=== PATIENT | male | born 1985 | race Caucasian/White ===

== ENCOUNTER 2018-02-15 10:49 | Emergency (ER) | payer MEDICAID ==
[~2018-02-15] VITALS: Ht 180.3 cm; Wt 86.2 kg
[~2018-02-15 10:49] MED LIST: BACDS PO; CYCL-120 PO; IBUP-1984 PO
[2018-02-15 11:28] VITALS: BP 137/90
== END 2018-02-15 13:31 | disposition left against medical advice (07) ==
LOC: ER 10:49
DX: K08.89 Other specified disorders of teeth and supporting structures (principal); Z53.21 Procedure and treatment not carried out due to patient leaving prior to being seen by health care provider

== ENCOUNTER 2024-05-01 12:09 | Emergency (ER) | payer MEDICAID ==
[~2024-05-01] VITALS: Ht 177.8 cm; Wt 84.1 kg
[2024-05-01 12:11] VITALS: TEMP 98.6
[2024-05-01] MEDS: methylPREDNISolone sod succ 125mg/2ml vial IV ONE (12:35)
[2024-05-01] MEDS: ketorolac tromethamine 15mg/ml inj. IV ONE (12:42)
[2024-05-01] MEDS: meperidine/PF 100mg/ml syringe IV STA (12:44)
[2024-05-01] MEDS: normal saline 1000ML IV soln IVB ONE (12:49)
[2024-05-01 12:59] VITALS: BP 132/80; PULSE 75; O2SAT 95
[2024-05-01 13:30] LABS: BASOPHILS % (AUTO) 0.2 % (0-1); EOSINOPHILS % (AUTO) 0.4 % (0-6); HEMATOCRIT 42.3 % (42.0-52.0); LYMPHOCYTES # (AUTO) 1.7 X10'3 (1.1-4.8); LYMPHOCYTES % (AUTO) 14.1 % (21-51); MEAN CORPUSCULAR HEMOGLOBIN 29.6 PG (27.0-31.0); MEAN CORPUSCULAR HGB CONC 33.1 g/dL (33.0-36.5); MEAN CORPUSCULAR VOLUME 89.4 FL (78-98); MEAN PLATELET VOLUME 8.3 FL (7.4-10.4); MONOCYTES # (AUTO) 0.9 X10'3 (0-0.9); NEUTROPHILS # (AUTO) 9.1 X10'3 (1.8-7.7); NEUTROPHILS % (AUTO) 77.3 % (42-75); PLATELET COUNT 185 X10'3 (140-440); RED BLOOD COUNT 4.73 X10'6 (4.70-6.10); RED CELL DISTRIBUTION WIDTH 13.9 % (11.5-14.5); WHITE BLOOD COUNT 11.8 X10'3 (4.5-11.0)
[2024-05-01 13:36] LABS: ALBUMIN 3.6 G/DL (3.4-5.0); ANION GAP 7 (8-16); BLOOD UREA NITROGEN 15 MG/DL (7-18); BUN/CREATININE RATIO 15.2 (10.0-20.0); CHLORIDE 106 MMOL/L (99-107); CREATININE 0.99 MG/DL (0.60-1.10); GLUCOSE 107 MG/DL (70-104); POTASSIUM 3.8 MMOL/L (3.5-5.1); SODIUM 139 MMOL/L (135-145); TOTAL CARBON DIOXIDE 26.3 MMOL/L (24-32); eCRCL 104 ML/MIN; eGFR 85 ML/MIN
[2024-05-01] MEDS ORDERED: CYCL-1 PO (14:40)
[2024-05-01] MEDS ORDERED: ACET-2 PO (14:40)
[2024-05-01] MEDS: triamcinolone acetonide 40mg/ml inj IM ONE (14:45)
[2024-05-01] MEDS: cyclobenzaprine 10mg tablet PO ONE (14:45)
[2024-05-01 14:59] VITALS: RESP 16
[2024-05-01] MEDS: ketorolac trometh. 30mg/ml inj. IM ONE (14:59)
== END 2024-05-01 15:55 | disposition home or self-care (01) ==
LOC: ER 12:09
DX: M54.9 Dorsalgia, unspecified (principal); Z79.899 Other long term (current) drug therapy; W18.30XA Fall on same level, unspecified, initial encounter; Y93.89 Activity, other specified; Y92.89 Other specified places as the place of occurrence of the external cause; Y99.8 Other external cause status
CPT/HCPCS: 36415; 72131; 80048; 85025; 96372; 96374; 96375; 99285; J1885; J2175; J2919; J3301; J7030; 96361

== ENCOUNTER 2025-01-17 10:30 | Emergency (ER) | payer MEDICAID ==
[~2025-01-17] VITALS: Ht 172.7 cm; Wt 77.3 kg
[~2025-01-17 10:30] MED LIST changes: +CYCL-1 PO
[2025-01-17 10:39] VITALS: BP 165/84; TEMP 97.8; O2SAT 98
[2025-01-17] MEDS: ketorolac trometh 30MG/ML vial 30 MG/ML VIAL IM STA (12:56)
[2025-01-17] MEDS: oxyCODONE IR 5mg (immed. release) tablet PO STA (13:34)
[2025-01-17] MEDS ORDERED: METH-798 PO (13:34)
[2025-01-17 13:45] VITALS: PULSE 72; RESP 16
== END 2025-01-17 13:48 | disposition home or self-care (01) ==
LOC: ER 10:31
DX: M54.32 Sciatica, left side (principal); Z79.1 Long term (current) use of non-steroidal anti-inflammatories (NSAID); Z79.899 Other long term (current) drug therapy
CPT/HCPCS: 73521; 96372; 99283; J1885